=== PATIENT | male | born 2000 | race Caucasian/White ===

== ENCOUNTER → 2020-12-17 | Outpatient (CLI) | payer OTHER ==
[~2020-12-17] MED LIST: IBU800 M1 PO
== END ==
LOC: COL.PUL 10:00
DX: R06.02 Shortness of breath (principal)
CPT/HCPCS: J7674

== ENCOUNTER 2021-02-06 09:46 | Outpatient (CLI) | payer OTHER ==
[~2021-02-06] VITALS: Ht 180.3 cm; Wt 94.2 kg
[2021-02-06] MEDS ORDERED: IBU800 M1 PO (10:14)
[2021-02-06 10:43] VITALS: BP 139/76; PULSE 83; TEMP 98.3
--- NOTE | 2021-02-06 11:05 | NUR ---
Pt to procedure.
--- NOTE | 2021-02-06 12:57 | NUR ---
Discharge instructions given to pt.Pt verbalizes understanding.INT removed,catheter tip intact.pt escorted out by Leslie Michael.
[2021-02-06 12:58] VITALS: BP 114/90; PULSE 95
== END 2021-02-06 12:58 ==
LOC: COL.CAR 09:46
DX: R00.2 Palpitations (principal); I47.1 Supraventricular tachycardia; R03.0 Elevated blood-pressure reading, without diagnosis of hypertension
CPT/HCPCS: 27886; C1764